=== PATIENT | female | born 1975 | race Caucasian/White ===

== ENCOUNTER 2020-09-26 07:57 | Outpatient (REF) | payer OTHER, SELFPAY ==
--- NOTE | 2020-09-26 08:03 | MM_ITS ---
EXAMINATION: MM SCREENING DIGITAL BREAST TOMOSYNTHESIS, BILATERAL CLINICAL INFORMATION: Screening. Asymptomatic. The lifetime risk of breast cancer based on the Tyrer-Cuzick Model is unable to be determined due to incomplete historical information. COMPARISON: Mammography: 09/21/19, 08/25/18, 06/24/17, 06/07/16, 05/30/15 TECHNIQUE: Digital breast tomosynthesis is performed in both the craniocaudal and mediolateral oblique views along with computer-aided detection (CAD). Synthesized 2D images are generated from the tomosynthesis. FINDINGS: There are scattered areas of fibroglandular density (ACR BI-RADS breast composition Category b). There are heterogeneous islands of fibroglandular tissue in each breast. The distribution is unchanged. No suspicious mass. No new suspicious abnormality. MM/MM tomosynthesis screening BI IMPRESSION: No mammographic evidence of malignancy. ASSESSMENT: BI-RADS 2: Benign RECOMMENDATION: Routine annual mammography screening. This patient's information was entered into a reminder system with a target due date for their next mammogram.
== END 2020-09-26 07:58 | disposition home or self-care (01) ==
LOC: HO.MAMMO 07:57
PROVIDERS: Visit Provider Internal Medicine
DX: Z12.31 Encounter for screening mammogram for malignant neoplasm of breast (principal)
CPT/HCPCS: 77063; 77067

== ENCOUNTER 2021-08-29 10:28 | Outpatient (REF) | payer OTHER, SELFPAY ==
[2021-08-29 12:05] LABS: Alanine Aminotransferase 18 U/L (0-31); Albumin Level 4.3 g/dL (3.5-5.0); Alkaline Phosphatase 97 U/L (39-117); Anion Gap 13 (12-20); Aspartate Amino Transferase 20 U/L (5-31); Bilirubin Total 0.4 mg/dL (0.0-1.0); Blood Urea Nitrogen 11 mg/dL (9-16); Carbon Dioxide 28 mmol/L (22-29); Chloride 104 mmol/L (96-108); Cholesterol 187 mg/dL; Estimated Glomerular Filt Rate > 60; Glucose Fasting 87 mg/dL (60-99); HDL Cholesterol 53 mg/dL; LDL Cholesterol Calculated 108 mg/dl; Potassium 4.5 mmol/L (3.3-5.1); Sodium 140 mmol/L (135-145); Total Protein 7.4 g/dL (6.5-8.0); Triglycerides 133 mg/dL
[2021-08-30 08:22] LABS: LDL Cholesterol Direct 113 mg/dL (<100)
== END 2021-08-29 10:29 | disposition home or self-care (01) ==
LOC: HO.HMGCLDS 10:28
PROVIDERS: PCP Internal Medicine; Visit Provider Internal Medicine
DX: E78.9 Disorder of lipoprotein metabolism, unspecified (principal); R42 Dizziness and giddiness
CPT/HCPCS: 36415; 80048; 80053; 80061; 83721

== ENCOUNTER 2021-11-09 11:57 | Outpatient (REF) | payer OTHER, SELFPAY ==
[2021-11-09 12:18] LABS: Binax Internal Control QC Valid; Binax Now Covid-19 Ag Positive (Negative)
== END 2021-11-09 11:58 | disposition home or self-care (01) ==
LOC: HO.LAB 11:57
PROVIDERS: Visit Provider Internal Medicine
DX: Z20.822 Contact with and (suspected) exposure to COVID-19 (principal)
CPT/HCPCS: C9803

== ENCOUNTER 2022-04-29 10:20 | Outpatient (REF) | payer OTHER, SELFPAY ==
[2022-04-29 15:06] LABS: CT PCR NOT DETECTED (Not Detect.); NG PCR NOT DETECTED (Not Detect.)
[2022-04-30 12:27] LABS: BV Int Neg Control Negative (Negative); BV Int Pos Control Positive (Positive)
[2022-05-02 18:21] LABS: HPV mRNA E6/E7 rflx Not Detected (Not Detected)
== END 2022-04-29 10:21 | disposition home or self-care (01) ==
LOC: HO.LAB 10:20
PROVIDERS: Visit Provider Advanced Practice Midwife
DX: Z12.4 Encounter for screening for malignant neoplasm of cervix (principal); Z11.3 Encounter for screening for infections with a predominantly sexual mode of transmission; Z11.51 Encounter for screening for human papillomavirus (HPV); F79 Unspecified intellectual disabilities; E66.09 Other obesity due to excess calories; E65 Localized adiposity; N92.6 Irregular menstruation, unspecified; Z20.2 Contact with and (suspected) exposure to infections with a predominantly sexual mode of transmission
CPT/HCPCS: 81025; 87480; 87491; 87510; 87591; 87624; 87660; 88142

== ENCOUNTER 2022-06-19 11:09 | Outpatient (REF) | payer OTHER, SELFPAY ==
--- NOTE | ~2022-06-19 | US_ITS ---
EXAMINATION: US PELVIS CLINICAL INFORMATION: Localized adiposity COMPARISON: None TECHNIQUE: Transabdominal pelvic ultrasound performed. Transvaginal imaging was declined. FINDINGS: Uterus: The uterus is anteverted and measures 10.1 x 3.4 x 4.3 cm. The double wall endometrial thickness is 0.4 mm. The uterus is smooth in contour and has normal myometrial echogenicity. No visible fibroid. Adnexa: The ovaries are not visualized. There is no adnexal mass identified. No free fluid. US/US pelvic complete IMPRESSION: Unremarkable appearance of the uterus on this transabdominal imaging. The ovaries are not seen. No adnexal mass.
[2022-06-19 11:23] LABS: MANUAL DIFF FLAG NO
[2022-06-19 11:38] LABS: Basophils Percent Auto 0.5 % (0-2); Eosinophils Absolute Auto 0.2 X10*3/uL (0.0-0.4); Hematocrit 42.8 % (37.0-47.0); Hemoglobin 14.1 g/dl (12.0-16.0); Imm Gran Abs Auto 0.02 X10*3/uL (0.00-0.03); Imm Gran Pct Auto 0.3 % (0.0-0.4); Lymphocytes Percent Auto 26.7 % (20-40); Mean Corpuscular HGB Conc 32.9 g/dl (31.0-35.0); Mean Corpuscular Hemoglobin 30.9 pg (27.0-33.0); Mean Corpuscular Volume 93.9 fL (80.0-98.0); Mean Platelet Volume 10.3 fL (9.4-12.3); Monocytes Absolute Auto 0.5 X10*3/uL (0.1-1.2); Monocytes Percent Auto 6.6 % (2-11); Neutrophils Absolute Auto 4.8 x10*3/uL (2.0-8.3); Neutrophils Percent Auto 63.9 % (45-73); Platelet Count 195 X10*3/uL (160-400); Red Blood Count 4.56 X10*6/uL (4.20-5.50); Red Cell Distribution Width 13.9 % (11.0-16.0); White Blood Count 7.4 X10*3/uL (4.8-10.8)
[2022-06-19 12:27] LABS: Alanine Aminotransferase 16 U/L (0-31); Albumin Level 4.3 g/dL (3.5-5.0); Alkaline Phosphatase 92 U/L (39-117); Anion Gap 16 (12-20); Aspartate Amino Transferase 16 U/L (5-31); Bilirubin Total 0.5 mg/dL (0.0-1.0); Blood Urea Nitrogen 11 mg/dL (9-16); Carbon Dioxide 26 mmol/L (22-29); Chloride 104 mmol/L (96-108); Cholesterol 193 mg/dL; Estimated Glomerular Filt Rate > 60; Glucose Fasting 91 mg/dL (60-99); HDL Cholesterol 56 mg/dL; LDL Cholesterol Calculated 116 mg/dl; Potassium 4.3 mmol/L (3.3-5.1); Sodium 142 mmol/L (135-145); Total Protein 7.4 g/dL (6.5-8.0); Triglycerides 106 mg/dL
[2022-06-19 12:47] LABS: TSH reflex Free T4 1.64 uIU/mL (0.32-4.0)
== END 2022-06-19 11:10 | disposition home or self-care (01) ==
LOC: HO.US 11:09
PROVIDERS: Absent Provider Internal Medicine; PCP Internal Medicine; Visit Provider Advanced Practice Midwife
DX: N92.6 Irregular menstruation, unspecified (principal); E66.09 Other obesity due to excess calories; E78.9 Disorder of lipoprotein metabolism, unspecified; F41.1 Generalized anxiety disorder; G40.909 Epilepsy, unspecified, not intractable, without status epilepticus; E65 Localized adiposity
CPT/HCPCS: 36415; 76856; 80053; 80061; 84443; 85025

== ENCOUNTER 2023-01-29 12:07 | Outpatient (REF) | payer OTHER, SELFPAY ==
[2023-01-29 14:38] LABS: Alanine Aminotransferase 18 U/L (0-31); Albumin Level 4.2 g/dL (3.5-5.0); Alkaline Phosphatase 105 U/L (39-117); Anion Gap 14 (12-20); Aspartate Amino Transferase 17 U/L (5-31); Bilirubin Total 0.7 mg/dL (0.0-1.0); Blood Urea Nitrogen 11 mg/dL (9-16); Carbon Dioxide 27 mmol/L (22-29); Chloride 105 mmol/L (96-108); Estimated Glomerular Filt Rate > 60; Glucose Random 105 mg/dL (60-115); Potassium 3.8 mmol/L (3.3-5.1); Sodium 142 mmol/L (135-145); Total Protein 7.1 g/dL (6.5-8.0)
[2023-01-30 11:28] LABS: LDL Cholesterol Direct 95 mg/dL (<100)
== END 2023-01-29 12:08 | disposition home or self-care (01) ==
LOC: HO.HMGCLDS 12:07
PROVIDERS: PCP Internal Medicine; Visit Provider Internal Medicine
DX: E78.9 Disorder of lipoprotein metabolism, unspecified (principal)
CPT/HCPCS: 36415; 80053; 83721

== ENCOUNTER 2023-03-20 13:36 | Outpatient (REF) | payer OTHER, SELFPAY ==
--- NOTE | ~2023-03-20 | MM_ITS ---
EXAMINATION: MM SCREENING DIGITAL BREAST TOMOSYNTHESIS, BILATERAL CLINICAL INFORMATION: Screening. Asymptomatic. The lifetime risk of breast cancer based on the Tyrer-Cuzick Model is 9%. COMPARISON: Mammography: 09/26/2020, 09/21/2019, 08/25/2018,06/24/2017, 06/07/2016 TECHNIQUE: Digital breast tomosynthesis is performed in both the craniocaudal and mediolateral oblique views along with computer-aided detection (CAD). Synthesized 2D images are generated from the tomosynthesis. FINDINGS: There are scattered areas of fibroglandular density (ACR BI-RADS breast composition Category b). There are no significant masses, abnormal calcifications, or other abnormalities. There are scattered bilateral asymmetries similar to prior studies. No developing density or architectural abnormality. There are scattered benign round coarse calcifications. The axilla and skin contours are unremarkable. MM/MM tomosynthesis screening BI IMPRESSION: No mammographic evidence of malignancy. ASSESSMENT: BI-RADS 2: Benign RECOMMENDATION: Routine annual mammography screening. This patient's information was entered into a reminder system with a target due date for their next mammogram.
== END 2023-03-20 13:37 | disposition home or self-care (01) ==
LOC: HO.MAMMO 13:36
PROVIDERS: PCP Internal Medicine; Visit Provider Internal Medicine
DX: Z12.31 Encounter for screening mammogram for malignant neoplasm of breast (principal)
CPT/HCPCS: 77063; 77067

== ENCOUNTER → 2023-04-30 10:20 | Outpatient (BNVA) | payer OTHER, SELFPAY | PROVIDERS: PCP Internal Medicine; Visit Provider Advanced Practice Midwife ==

== ENCOUNTER 2023-07-30 12:45 | Outpatient (AMB) | payer OTHER, SELFPAY ==
[2023-07-30 12:45] VITALS: BP 94/70; PULSE 72; O2SAT 97; BMI 36.6
--- NOTE | 2023-07-30 12:45 | MHC.PC.OV ---
Vital Signs 07/30/23 12:45 Height 5 ft 4 in Weight 213 lb BMI 36.6 BP 94/70 Blood Pressure Location Lt brachial Position Sitting Pulse 72 Pulse Source Pulse Oximeter Pulse Oximetry (%) 97 Oxygen Delivery Method Room Air Intake Visit Reasons: 6m follow up Intake Note: Pt is here today for 6 months follow up visit. Allergies No Known Allergies [No Known Allergies*] Allergy (Verified 07/30/23 12:45) Medication List - Last Reconciled 07/30/23 by Bria Martinez MD ketoconazole 1% (Nizoral A-D) 1 appl topical 2XW 30 days lamotrigine 100 mg PO BID loratadine (Claritin) 10 mg PO DAILY PRN meclizine 25 mg PO BID PRN 7 days risperidone 2 mg PO DAILY sertraline 50 mg PO DAILY simvastatin 20 mg PO BEDTIME trazodone 50 mg PO DAILY triamcinolone acetonide 0.5% 1 appl topical BID PRN 30 days Tobacco use date assessed: 07/30/23 Dental Screening Dental Screen Date: 07/30/23 Did you have a dental visit in the last 12 months?: Yes Did you have a dental problem in the last 6 months where you did not have access to dental care?: No Was dental information given to patient?: Patient has dentist HPI 6m follow up HPI Details Six-month follow-up appointment patient is 48-year-old female with intellectual disability but able to understand simple directions. Patient is on simvastatin 20 mg for lipid control and is due for labs Patient is also on medication for anxiety sertraline 50 mg and trazodone 50 mg at night along with risperidone 2 mg through Psychiatry Seizure disorder managed by Neurology patient is on lamotrigine 100 mg b.i.d. Patient is due for physical examination appointment we will book that in 6 month BMI is elevated at 36.6, patient need to lose weight but having difficulty losing. [facility] Medical History Anxiety, generalized Seizure disorder Intellectual disability Lipid disorder Surgical History History of tooth extraction History of section Family History Father Seizure Unknown family medical history Mother No problems noted. Sister No problems noted. Daughter No problems noted. Other Mental health disorder Social History Housing: Apartment Patient Tobacco Use Status: Never used Tobacco e-Cigarette/Vaping Use: Never Used Second Hand Smoke Exposure: No Current occupational status: disabled Cognitive needs: No Hearing needs: No Vision needs: Yes Questionnaire PHQ-9 Over the last 2 weeks, how often have you been bothered by any of the following problems? 1. Little interest or pleasure in doing things: not at all 2. Feeling down, depressed, or hopeless: several days 3. Trouble falling or staying asleep, or sleeping too much: not at all 4. Feeling tired or having little energy: several days 5. Poor appetite or overeating: not at all 6. Feeling bad about yourself - or that you are a failure or have let yourself or your family down: not at all 7. Trouble concentrating on things, such as reading the newspaper or watching television: not at all 8. Moving or speaking so slowly that other people could have noticed. Or the opposite - being so fidgety or restless that you have been moving around a lot more than usual: not at all 9. Thoughts that you would be better off or of hurting yourself in some way: not at all Total score: 2 Depression Screening Interpretation: Negative Depression Screening Done: Yes 85515 - PHQ-9 Billing: Yes Source: Developed by Drs. Venancio Wilkes, Babak Garcia and colleagues, with an educational karl from [employer]. Thrive Questionnaire Date Thrive assessed: 06/19/22 AUDIT C Alcohol Use Questionnaire (AUDIT-C) 1. How often do you have a drink containing alcohol?: Never 3. How often do you have six or more drinks on one occasion?: Never Total Score: 0 MATT-7 AMB Questionnaire MATT-7 Date MATT - 7 assessed: 06/19/22 Source: Developed by Drs. Venancio Wilkes, Babak Garcia and colleagues, with an educational karl from [employer]. Review of Systems Const Denies chills and Denies fever(s) ENT Denies epistaxis and Denies nasal discharge Card Denies chest pain Resp Denies chest congestion, Denies cough and Denies hemoptysis GI Denies diarrhea and Denies nausea Skin/Breast Denies rash Neuro Reports no additional complaints Psych Reports no additional complaints Endo Reports no additional complaints Physical exam (Primary Care) Vital Signs: Last Vital Signs Pulse 72 07/30/23 12:45 BP 94/70 07/30/23 12:45 Pulse Ox 97 07/30/23 12:45 Oxygen Delivery Method Room Air 07/30/23 12:45 BMI result Body Mass Index 36.6 Tobacco/Smoking Status: Tobacco use Status Tobacco use date assessed 07/30/23 07/30/23 12:50 Patient Tobacco Use Status Never used Tobacco 07/30/23 12:50 e-Cigarette/Vaping Use Never Used 07/30/23 12:50 Depression Screening Interpretation: Negative Thrive Assessment: Date of Thrive Assessment Date Thrive assessed 06/19/22 07/30/23 12:50 Const General: cooperative, comfortable and no acute distress Orientation/consciousness: patient oriented x3 HENMT Head: Yes normocephalic Eyes General: appearance normal, both eyes and all related structures Neck Neck: Yes supple Resp Effort & Inspection: normal respiratory effort, no cough and no stridor Cardio Rhythm: regular rhythm Heart sounds: S1 normal heart sound present and S2 normal heart sound present Skin General skin exam: turgor normal Neuro General: patient oriented x3, tone normal and moves all extremities Extrem Right lower extremity: no edema Left lower extremity: no edema Assessment and Plan Assessment & Plan (1) Lipid disorder: Code(s): E78.9 - Disorder of lipoprotein metabolism, unspecified (2) Intellectual disability: Code(s): F79 - Unspecified intellectual disabilities (3) Seizure disorder: Code(s): G40.909 - Epilepsy, unspecified, not intractable, without status epilepticus (4) Anxiety, generalized: Code(s): F41.1 - Generalized anxiety disorder (5) Obesity (BMI 35.0-39.9 without comorbidity): Code(s): E66.9 - Obesity, unspecified (6) Obesity due to excess calories: Code(s): E66.09 - Other obesity due to excess calories Qualifiers: Obesity classification: adult class 2 (BMI 35 - 39.9) Serious obesity comorbidity presence: with serious comorbidity Body mass index: BMI 36.0-36.9 Qualified Code(s): E66.01 - Morbid (severe) obesity due to excess calories; Z68.36 - Body mass index [BMI] 36.0-36.9, adult Plan Six-month follow-up appointment patient is 48-year-old female with intellectual disability but able to understand simple directions. Patient is on simvastatin 20 mg for lipid control and is due for labs Patient is also on medication for anxiety sertraline 50 mg and trazodone 50 mg at night along with risperidone 2 mg through Psychiatry Seizure disorder managed by Neurology patient is on lamotrigine 100 mg b.i.d. Patient is due for physical examination appointment we will book that in 6 month BMI is elevated at 36.6, patient need to lose weight but having difficulty losing. Orders: Orders Comprehensive Met. Panel Today E66.9 - Obesity, unspecified, E78.9 - Disorder of lipoprotein metabolism, unspecified, F41.1 - Generalized anxiety disorder, F79 - Unspecified intellectual disabilities, G40.909 - Epilepsy, unspecified, not intractable, without status epilepticus Complete Blood Count Auto Diff Today E66.9 - Obesity, unspecified, E78.9 - Disorder of lipoprotein metabolism, unspecified, F41.1 - Generalized anxiety disorder, F79 - Unspecified intellectual disabilities, G40.909 - Epilepsy, unspecified, not intractable, without status epilepticus Coding Level of Care Code Est Pt Level 4 (15698) Diagnoses Lipid disorder E78.9 Intellectual disability F79 Seizure disorder G40.909 Anxiety, generalized F41.1 Obesity (BMI 35.0-39.9 without comorbidity) E66.9 Class 2 severe obesity due to excess calories with serious comorbidity and body mass index (BMI) of 36.0 to 36.9 in adult E66.01; Z68.36 Obesity classification: adult class 2 (BMI 35 - 39.9) Serious obesity comorbidity presence: with serious comorbidity Body mass index: BMI 36.0-36.9
== END 2023-07-30 13:13 | disposition home or self-care (01) ==
PROVIDERS: Visit Provider Internal Medicine
DX: E78.9 Disorder of lipoprotein metabolism, unspecified (principal); G40.909 Epilepsy, unspecified, not intractable, without status epilepticus; E66.01 Morbid (severe) obesity due to excess calories; Z68.36 Body mass index [BMI] 36.0-36.9, adult; F79 Unspecified intellectual disabilities; F41.1 Generalized anxiety disorder
CPT/HCPCS: 99214

== ENCOUNTER 2023-07-30 13:01 | Outpatient (REF) | payer OTHER, SELFPAY ==
[2023-07-30 17:34] LABS: Alanine Aminotransferase 10 U/L (0-31); Albumin Level 4.3 g/dL (3.5-5.0); Alkaline Phosphatase 80 U/L (39-117); Anion Gap 17 (12-20); Aspartate Amino Transferase 16 U/L (5-31); Bilirubin Total 0.3 mg/dL (0.0-1.0); Blood Urea Nitrogen 11 mg/dL (9-16); Calcium 9.8 mg/dL (8.4-10.2); Carbon Dioxide 26 mmol/L (22-29); Chloride 103 mmol/L (96-108); Estimated Glomerular Filt Rate > 60; Glucose Random 83 mg/dL (60-115); Sodium 142 mmol/L (135-145); Total Protein 7.6 g/dL (6.5-8.0)
== END 2023-07-30 13:02 | disposition home or self-care (01) ==
LOC: HO.HMGCLDS 13:01
PROVIDERS: PCP Internal Medicine; Visit Provider Internal Medicine
DX: E78.9 Disorder of lipoprotein metabolism, unspecified (principal); F79 Unspecified intellectual disabilities; G40.909 Epilepsy, unspecified, not intractable, without status epilepticus; F41.1 Generalized anxiety disorder; E66.9 Obesity, unspecified
CPT/HCPCS: 36415; 80053; 85025

== ENCOUNTER 2024-02-04 10:19 | Outpatient (AMB) | payer OTHER, SELFPAY ==
[2024-02-04 10:21] VITALS: BP 100/70; PULSE 85; O2SAT 96; BMI 36.4
--- NOTE | 2024-02-04 10:21 | A.OFFPC_ITS ---
Vital Signs 02/04/24 10:21 Height 5 ft 4 in Weight 212 lb BMI 36.4 BP 100/70 Blood Pressure Location Lt brachial Position Sitting Pulse 85 Pulse Source Pulse Oximeter Pulse Oximetry (%) 96 Oxygen Delivery Method Room Air Intake Visit Reasons: Annual PE [employer] Required: No Accompanied by: Self / Same As Patient Allergies No Known Allergies [No Known Allergies*] Allergy (Verified 02/04/24 10:21) Medication List - Last Reconciled 02/04/24 by Bria Martinez MD calcipotriene 0.005% topical ketoconazole 2% topical lamotrigine 100 mg PO BID loratadine (Claritin) 10 mg PO DAILY PRN risperidone 2 mg PO DAILY sertraline 50 mg PO DAILY simvastatin 20 mg PO BEDTIME trazodone 50 mg PO DAILY triamcinolone acetonide 0.5% 1 appl topical BID PRN 30 days Tobacco use date assessed: 02/04/24 Dental Screening Dental Screen Date: 02/04/24 Did you have a dental visit in the last 12 months?: Yes Did you have a dental problem in the last 6 months where you did not have access to dental care?: No Was dental information given to patient?: Patient has dentist HPI Annual PE HPI Details Patient is a 49-year-old with intellectual disability who lives in a foster care came in today for physical examination She is here with a social media specialist Only medication from this office is simvastatin for lipid control For that patient comes in every 6 months for follow-up, she is due for labs Mammogram will be due in March of this year Gynecology visit was April of last year Patient refused colonoscopy today after I explained the procedure. BMI is elevated patient have difficulty losing weight Psychiatric care through Psychiatry Follow-up 6 months physical exam 1 year [facility] Medical History Anxiety, generalized Seizure disorder Intellectual disability Lipid disorder Surgical History History of tooth extraction History of section Family History Father Seizure Unknown family medical history Mother No problems noted. Sister No problems noted. Daughter No problems noted. Other Mental health disorder Social History Housing: Apartment Patient Tobacco Use Status: Never used Tobacco e-Cigarette/Vaping Use: Never Used Second Hand Smoke Exposure: No Current occupational status: disabled Cognitive needs: No Hearing needs: No Vision needs: Yes Questionnaire PHQ-9 Over the last 2 weeks, how often have you been bothered by any of the following problems? 1. Little interest or pleasure in doing things: not at all 2. Feeling down, depressed, or hopeless: not at all 3. Trouble falling or staying asleep, or sleeping too much: not at all 4. Feeling tired or having little energy: not at all 5. Poor appetite or overeating: not at all 6. Feeling bad about yourself - or that you are a failure or have let yourself or your family down: not at all 7. Trouble concentrating on things, such as reading the newspaper or watching television: not at all 8. Moving or speaking so slowly that other people could have noticed. Or the opposite - being so fidgety or restless that you have been moving around a lot more than usual: not at all 9. Thoughts that you would be better off or of hurting yourself in some way: not at all Total score: 0 Depression Screening Interpretation: Negative Depression Screening Done: Yes 63782 - PHQ-9 Billing: Yes Source: Developed by Drs. Venancio Wilkes, Jeannette Braga, Babak Shafer and colleagues, with an educational karl from [employer]. Thrive Questionnaire Date Thrive assessed: 02/04/24 I am a: Patient What is your living situation today?: I have a steady place to live Within the past 12 months, did the food you bought not last and you didn't have the money to get more?: Never true Within the past 12 months, did you worry whether your food would run out before you got money to buy more?: Never true Do you have trouble paying for medicines?: No Do you have trouble getting transportation to medical appointments?: No Do you have trouble paying your heating and electricity bill?: No Do you have trouble taking care of your child, family member or friend?: No Do you have trouble with day-to-day activities such as bathing, preparing meals, shopping, managing finances, etc.?: No Are you currently unemployed and looking for a job?: No Are you interested in more education?: No Please select the resources that you would like help with: None Currently or been in a relationship where the following occur: no concerns reported THRIVE Score: 0 AUDIT C Alcohol Use Questionnaire (AUDIT-C) 1. How often do you have a drink containing alcohol?: Never 3. How often do you have six or more drinks on one occasion?: Never Total Score: 0 Score Reviewed/Action Taken: Yes MATT-7 AMB Questionnaire MATT-7 Date MATT - 7 assessed: 02/04/24 Feeling nervous, anxious, or on edge: 0 = Not at all Not being able to stop or control worryin = Not at all Worrying too much about different things: 0 = Not at all Trouble relaxin = Not at all Being so restless that it is hard to sit still: 0 = Not at all Becoming easily annoyed or irritable: 0 = Not at all Feeling afraid as if something awful might happen: 0 = Not at all Total MATT-7 score (0-4 normal; 5-9 mild; 10-14 moderate; 15-21 severe): 0 Source: Developed by Drs. Venancio Wilkes, Jeannette Brgaa, Babak Shafer and colleagues, with an educational karl from [employer]. MATT-7 Assessment Billing MATT-7 Assessment Tool: MATT-7 Assessment 42373 Review of Systems Const Denies chills, Denies fever(s) and Denies headache(s) Eyes Denies blurry vision ENT Denies headache(s), Denies nasal discharge, Denies nasal obstruction, Denies odynophagia and Denies sinus pain Card Denies chest pain at rest and Denies chest pain with activity Resp Denies cough and Denies hemoptysis GI Denies diarrhea, Denies odynophagia, Denies vomiting and Denies hematemesis Reports as per HPI Musc Denies abnormal gait Skin/Breast Reports as per HPI Neuro Denies Neuro-related abnormal movements, Denies Abnormal speech present, Denies abnormal gait, Denies headache(s) and Denies Sensory deficit (Neuro) Endo Reports as per HPI Nguyễn/Lymph Reports as per HPI Aller/Immun Reports as per HPI Physical exam (Primary Care) Vital Signs: Last Vital Signs Pulse 85 04/17/24 10:21 BP 100/70 02/04/24 10:21 Pulse Ox 96 02/04/24 10:21 Oxygen Delivery Method Room Air 02/04/24 10:21 BMI result Body Mass Index 36.4 Tobacco/Smoking Status: Tobacco use Status Tobacco use date assessed 02/04/24 02/04/24 10:27 Patient Tobacco Use Status Never used Tobacco 02/04/24 10:27 e-Cigarette/Vaping Use Never Used 02/04/24 10:27 PHQ-9: PHQ-9 Score PHQ-9: Total score 0 02/04/24 10:42 Depression Screening Interpretation: Negative Thrive Assessment: Date of Thrive Assessment Date Thrive assessed 02/04/24 02/04/24 10:27 Currently or been in a relationship where the following occur: no concerns reported Const General: cooperative, comfortable and no acute distress HENMT Head: Yes normocephalic and Yes atraumatic Eyes General: appearance normal, both eyes and all related structures Pupils: Equal, round and reactive pupils present EOM: EOMs intact bilaterally Neck Neck: Yes supple and No lymphadenopathy Thyroid: Thyroid normal Lymphatic: no lymphadenopathy noted Chest Breast/axilla palpation: normal palpation of the breasts Resp Effort & Inspection: normal respiratory effort and able to speak in complete sentences Auscultation: clear to auscultation bilaterally Cardio Heart sounds: S1 normal heart sound present and S2 normal heart sound present GI Palpation (GI): Soft to palpation and nontender Auscultation: normal bowel sounds General: Yes no CVA tenderness Back/Spine/Pelvis Back: no CVA tenderness Skin General skin exam: elasticity normal and turgor normal Neuro General: gait normal Cranial nerves: Yes Equal, round and reactive pupils present Speech: No Abnormal speech present Sensory Exam: No Sensory deficit (Neuro) Extrem General: Yes normal exam except as noted and No edema Assessment and Plan Assessment & Plan (1) Encounter for general adult medical examination with abnormal findings: Code(s): Z00.01 - Encounter for general adult medical examination with abnormal findings (2) Obesity (BMI 35.0-39.9 without comorbidity): Code(s): E66.9 - Obesity, unspecified (3) Seborrheic dermatitis: Code(s): L21.9 - Seborrheic dermatitis, unspecified (4) Intellectual disability: Code(s): F79 - Unspecified intellectual disabilities (5) Lipid disorder: Code(s): E78.9 - Disorder of lipoprotein metabolism, unspecified (6) Seizure disorder: Code(s): G40.909 - Epilepsy, unspecified, not intractable, without status epilepticus (7) Anxiety, generalized: Code(s): F41.1 - Generalized anxiety disorder Plan Patient is a 49-year-old with intellectual disability who lives in a foster care came in today for physical examination She is here with a social media specialist Only medication from this office is simvastatin for lipid control For that patient comes in every 6 months for follow-up, she is due for labs Mammogram will be due in March of this year Gynecology visit was April of last year Patient refused colonoscopy today after I explained the procedure. BMI is elevated patient have difficulty losing weight Psychiatric care through Psychiatry Patient does have a diagnosis of seizure disorder managed by Neurology Follow-up 6 months physical exam 1 year Orders: Orders Complete Blood Count Auto Diff Today E66.9 - Obesity, unspecified, E78.9 - Disorder of lipoprotein metabolism, unspecified, F41.1 - Generalized anxiety disorder, F79 - Unspecified intellectual disabilities, G40.909 - Epilepsy, unspecified, not intractable, without status epilepticus, L21.9 - Seborrheic dermatitis, unspecified, Z00.01 - Encounter for general adult medical examination with abnormal findings Comprehensive Met. Panel Today E66.9 - Obesity, unspecified, E78.9 - Disorder of lipoprotein metabolism, unspecified, F41.1 - Generalized anxiety disorder, F79 - Unspecified intellectual disabilities, G40.909 - Epilepsy, unspecified, not intractable, without status epilepticus, L21.9 - Seborrheic dermatitis, unspecified, Z00.01 - Encounter for general adult medical examination with abnormal findings LDL Cholesterol Direct Today E66.9 - Obesity, unspecified, E78.9 - Disorder of lipoprotein metabolism, unspecified, F41.1 - Generalized anxiety disorder, F79 - Unspecified intellectual disabilities, G40.909 - Epilepsy, unspecified, not intractable, without status epilepticus, L21.9 - Seborrheic dermatitis, unspecified, Z00.01 - Encounter for general adult medical examination with abnormal findings Coding Level of Care Code Est Pt Prev Care 40-64y(71906) Diagnoses Encounter for general adult medical examination with abnormal findings Z00.01 Obesity (BMI 35.0-39.9 without comorbidity) E66.9 Seborrheic dermatitis L21.9 Intellectual disability F79 Lipid disorder E78.9 Seizure disorder G40.909 Anxiety, generalized F41.1 Additional Codes MATT-7 Assessment Billing - MATT-7 Assessment Tool: MATT-7 Assessment [id number] ([id number])
== END 2024-02-04 10:40 | disposition home or self-care (01) ==
PROVIDERS: PCP Internal Medicine; Visit Provider Internal Medicine
DX: Z00.00 Encounter for general adult medical examination without abnormal findings (principal); G40.909 Epilepsy, unspecified, not intractable, without status epilepticus; E66.9 Obesity, unspecified; Z68.36 Body mass index [BMI] 36.0-36.9, adult; L21.9 Seborrheic dermatitis, unspecified; F79 Unspecified intellectual disabilities; E78.9 Disorder of lipoprotein metabolism, unspecified; F41.1 Generalized anxiety disorder
CPT/HCPCS: 99396

== ENCOUNTER 2024-02-04 10:42 | Outpatient (REF) | payer OTHER, SELFPAY ==
[2024-02-04 13:12] LABS: MANUAL DIFF FLAG NO
[2024-02-04 13:34] LABS: Basophils Percent Auto 0.6 % (0-2); Eosinophils Absolute Auto 0.1 X10*3/uL (0.0-0.4); Eosinophils Percent Auto 1.3 % (0-4); Hematocrit 45.8 % (37.0-47.0); Hemoglobin 15.1 g/dl (12.0-16.0); Imm Gran Abs Auto 0.01 X10*3/uL (0.00-0.03); Imm Gran Pct Auto 0.1 % (0.0-0.4); Lymphocytes Absolute Auto 1.8 X10*3/uL (1.2-4.9); Lymphocytes Percent Auto 25.6 % (20-40); Mean Corpuscular Hemoglobin 31.7 pg (27.0-33.0); Mean Corpuscular Volume 96.2 fL (80.0-98.0); Mean Platelet Volume 10.7 fL (9.4-12.3); Monocytes Absolute Auto 0.3 X10*3/uL (0.1-1.2); Monocytes Percent Auto 4.6 % (2-11); Neutrophils Absolute Auto 4.7 x10*3/uL (2.0-8.3); Neutrophils Percent Auto 67.8 % (45-73); Platelet Count 198 X10*3/uL (160-400); Red Blood Count 4.76 X10*6/uL (4.20-5.50); Red Cell Distribution Width 13.3 % (11.0-16.0); White Blood Count 6.9 X10*3/uL (4.8-10.8)
[2024-02-04 14:32] LABS: Alanine Aminotransferase 11 U/L (0-31); Albumin Level 4.2 g/dL (3.5-5.0); Anion Gap 12 (12-20); Aspartate Amino Transferase 16 U/L (5-31); Bilirubin Total 0.6 mg/dL (0.0-1.0); Blood Urea Nitrogen 8 mg/dL (9-16); Calcium 9.4 mg/dL (8.4-10.2); Carbon Dioxide 27 mmol/L (22-29); Chloride 104 mmol/L (96-108); Estimated Glomerular Filt Rate > 60; Glucose Random 93 mg/dL (60-115); Sodium 139 mmol/L (135-145); Total Protein 7.8 g/dL (6.5-8.0)
[2024-02-04 15:02] LABS: Alkaline Phosphatase 84 U/L (39-117)
[2024-02-05 11:23] LABS: LDL Cholesterol Direct 100 mg/dL (<100)
== END 2024-02-04 10:43 | disposition home or self-care (01) ==
LOC: HO.HMGCLDS 10:42
PROVIDERS: PCP Internal Medicine; Visit Provider Internal Medicine
DX: Z00.01 Encounter for general adult medical examination with abnormal findings (principal); E66.9 Obesity, unspecified; L21.9 Seborrheic dermatitis, unspecified; F79 Unspecified intellectual disabilities; E78.9 Disorder of lipoprotein metabolism, unspecified; G40.909 Epilepsy, unspecified, not intractable, without status epilepticus; F41.1 Generalized anxiety disorder
CPT/HCPCS: 36415; 80053; 83721; 85025

== ENCOUNTER 2024-03-25 13:58 | Outpatient (REF) | payer OTHER, SELFPAY | END 2024-03-25 13:59 | disposition home or self-care (01) | LOC: HO.MAMMO 13:58 | PROVIDERS: PCP Internal Medicine; Visit Provider Internal Medicine | DX: Z12.31 Encounter for screening mammogram for malignant neoplasm of breast (principal) | CPT/HCPCS: 77063; 77067 ==

== ENCOUNTER → 2024-03-25 14:00 | Outpatient (BNV) | payer OTHER, SELFPAY | PROVIDERS: PCP Internal Medicine; Visit Provider Radiology Diagnostic Radiology | DX: Z12.31 Encounter for screening mammogram for malignant neoplasm of breast (principal) | CPT/HCPCS: 77063; 77067 ==

== ENCOUNTER 2024-07-20 10:27 | Outpatient (AMB) | payer OTHER, SELFPAY ==
[2024-07-20 10:30] VITALS: BP 102/68; PULSE 72; O2SAT 97; BMI 35.1
--- NOTE | 2024-07-20 10:30 | MHC.PC.OV ---
Vital Signs 07/20/24 10:30 Height 5 ft 4 in Weight 204 lb 8 oz BMI 35.1 BP 102/68 Blood Pressure Location Rt brachial Position Sitting Pulse 72 Pulse Source Pulse Oximeter Pulse Oximetry (%) 97 Oxygen Delivery Method Room Air Intake Visit Reasons: 6M F/U Allergies No Known Allergies [No Known Allergies*] Allergy (Verified 02/04/24 10:21) Medication List - Last Reconciled 07/20/24 by Bria Martinez MD calcipotriene 0.005% topical ketoconazole 2% topical lamotrigine 100 mg PO BID loratadine (Claritin) 10 mg PO DAILY PRN risperidone 2 mg PO DAILY sertraline 50 mg PO DAILY simvastatin 20 mg PO BEDTIME trazodone 50 mg PO DAILY triamcinolone acetonide 0.5% 1 appl topical BID PRN 30 days Tobacco use date assessed: 02/04/24 Dental Screening Dental Screen Date: 02/04/24 HPI 6M F/U HPI Details Patient is a 49-year-old female with intellectual disability Came in for her six-month follow-up appointment Lipid disorder: Patient is taking simvastatin 20 mg She offer no complaints today She is also seeing psychiatrist for her psychiatric needs. Last set of lab was January of this year New set of lab order placed to be done today Patient will return in 6 months for physical exam. [facility] Medical History Anxiety, generalized Seizure disorder Intellectual disability Lipid disorder Surgical History History of tooth extraction History of section Family History Father Seizure Unknown family medical history Mother No problems noted. Sister No problems noted. Daughter No problems noted. Other Mental health disorder Social History Housing: Apartment Patient Tobacco Use Status: Never used Tobacco e-Cigarette/Vaping Use: Never Used Second Hand Smoke Exposure: No Current occupational status: disabled Cognitive needs: No Hearing needs: No Vision needs: Yes Questionnaire Thrive Questionnaire Date Thrive assessed: 02/04/24 MATT-7 AMB Questionnaire MATT-7 Date MATT - 7 assessed: 02/04/24 Source: Developed by Drs. Venancio Wilkes, Jeannette Braga, Babak Shafer and colleagues, with an educational karl from [employer]. Review of Systems Const Denies chills and Denies fever(s) ENT Denies epistaxis and Denies nasal discharge Card Denies chest pain Resp Denies chest congestion, Denies cough and Denies hemoptysis GI Denies diarrhea and Denies nausea Skin/Breast Denies rash Neuro Reports no additional complaints Psych Reports no additional complaints Endo Reports no additional complaints Physical exam (Primary Care) Vital Signs: Last Vital Signs Pulse 72 07/20/24 10:30 BP 102/68 07/20/24 10:30 Pulse Ox 97 07/20/24 10:30 Oxygen Delivery Method Room Air 07/20/24 10:30 BMI result Body Mass Index 35.1 Tobacco/Smoking Status: Tobacco use Status Tobacco use date assessed 02/04/24 07/20/24 10:32 Patient Tobacco Use Status Never used Tobacco 07/20/24 10:32 e-Cigarette/Vaping Use Never Used 07/20/24 10:32 Thrive Assessment: Date of Thrive Assessment Date Thrive assessed 02/04/24 07/20/24 10:32 Const General: cooperative, comfortable and no acute distress Orientation/consciousness: patient oriented x3 HENMT Head: Yes normocephalic Eyes General: appearance normal, both eyes and all related structures Neck Neck: Yes supple Resp Effort & Inspection: normal respiratory effort, no cough and no stridor Cardio Rhythm: regular rhythm Heart sounds: S1 normal heart sound present and S2 normal heart sound present Skin General skin exam: turgor normal Neuro General: patient oriented x3, tone normal and moves all extremities Extrem Right lower extremity: no edema Left lower extremity: no edema Coding Level of Care Code Est Pt Level 3 (16119) Diagnoses Lipid disorder E78.9 Intellectual disability F79 Anxiety, generalized F41.1 Class 2 severe obesity due to excess calories with serious comorbidity and body mass index (BMI) of 36.0 to 36.9 in adult E66.01; Z68.36 Body mass index: BMI 36.0-36.9 Obesity classification: adult class 2 (BMI 35 - 39.9) Serious obesity comorbidity presence: with serious comorbidity Assessment & Plan Assessment & Plan (1) Lipid disorder: Code(s): E78.9 - Disorder of lipoprotein metabolism, unspecified Category: Medical (2) Intellectual disability: Code(s): F79 - Unspecified intellectual disabilities Category: Medical (3) Anxiety, generalized: Code(s): F41.1 - Generalized anxiety disorder Category: Medical (4) Obesity due to excess calories: Code(s): E66.09 - Other obesity due to excess calories Category: Medical Qualifiers: Body mass index: BMI 36.0-36.9 Obesity classification: adult class 2 (BMI 35 - 39.9) Serious obesity comorbidity presence: with serious comorbidity Qualified Code(s): E66.01 - Morbid (severe) obesity due to excess calories; Z68.36 - Body mass index [BMI] 36.0-36.9, adult Plan Patient is a 49-year-old female with intellectual disability Came in for her six-month follow-up appointment Lipid disorder: Patient is taking simvastatin 20 mg She offer no complaints today She is also seeing psychiatrist for her psychiatric needs. Last set of lab was January of this year New set of lab order placed to be done today BMI is elevated, patient is having difficulty losing weight Patient will return in 6 months for physical exam. Orders: Orders Complete Blood Count Auto Diff Today E66.01 - Morbid (severe) obesity due to excess calories, E78.9 - Disorder of lipoprotein metabolism, unspecified, F41.1 - Generalized anxiety disorder, F79 - Unspecified intellectual disabilities, Z68.36 - Body mass index [BMI] 36.0-36.9, adult Comprehensive Met. Panel Today E66.01 - Morbid (severe) obesity due to excess calories, E78.9 - Disorder of lipoprotein metabolism, unspecified, F41.1 - Generalized anxiety disorder, F79 - Unspecified intellectual disabilities, Z68.36 - Body mass index [BMI] 36.0-36.9, adult LDL Cholesterol Direct Today E66.01 - Morbid (severe) obesity due to excess calories, E78.9 - Disorder of lipoprotein metabolism, unspecified, F41.1 - Generalized anxiety disorder, F79 - Unspecified intellectual disabilities, Z68.36 - Body mass index [BMI] 36.0-36.9, adult
== END 2024-07-20 10:41 | disposition home or self-care (01) ==
LOC: HO.HMCC 10:27
PROVIDERS: PCP Internal Medicine; Visit Provider Internal Medicine
DX: E78.9 Disorder of lipoprotein metabolism, unspecified (principal); F79 Unspecified intellectual disabilities; F41.1 Generalized anxiety disorder; E66.01 Morbid (severe) obesity due to excess calories; Z68.36 Body mass index [BMI] 36.0-36.9, adult

== ENCOUNTER → 2024-07-20 10:27 | Outpatient (BNVA) | payer OTHER, SELFPAY | PROVIDERS: PCP Internal Medicine; Visit Provider Internal Medicine | DX: E78.9 Disorder of lipoprotein metabolism, unspecified (principal); F79 Unspecified intellectual disabilities; F41.1 Generalized anxiety disorder; E66.01 Morbid (severe) obesity due to excess calories; Z68.36 Body mass index [BMI] 36.0-36.9, adult; Z71.3 Dietary counseling and surveillance | CPT/HCPCS: 99212 ==

== ENCOUNTER 2024-07-20 10:42 | Outpatient (REF) | payer OTHER, SELFPAY ==
[2024-07-20 12:57] LABS: MANUAL DIFF FLAG NO
[2024-07-20 13:11] LABS: Basophils Percent Auto 0.6 % (0-2); Eosinophils Absolute Auto 0.1 X10*3/uL (0.0-0.4); Eosinophils Percent Auto 1.2 % (0-4); Hematocrit 44.3 % (37.0-47.0); Hemoglobin 14.6 g/dl (12.0-16.0); Imm Gran Abs Auto 0.01 X10*3/uL (0.00-0.03); Imm Gran Pct Auto 0.1 % (0.0-0.4); Lymphocytes Absolute Auto 1.9 X10*3/uL (1.2-4.9); Mean Corpuscular Hemoglobin 32.1 pg (27.0-33.0); Mean Corpuscular Volume 97.4 fL (80.0-98.0); Mean Platelet Volume 10.8 fL (9.4-12.3); Monocytes Absolute Auto 0.3 X10*3/uL (0.1-1.2); Monocytes Percent Auto 4.3 % (2-11); Neutrophils Absolute Auto 4.5 x10*3/uL (2.0-8.3); Neutrophils Percent Auto 65.8 % (45-73); Platelet Count 170 X10*3/uL (160-400); Red Blood Count 4.55 X10*6/uL (4.20-5.50); Red Cell Distribution Width 13.3 % (11.0-16.0); White Blood Count 6.8 X10*3/uL (4.8-10.8)
[2024-07-20 13:48] LABS: Alanine Aminotransferase 10 U/L (0-31); Albumin Level 4.3 g/dL (3.5-5.0); Alkaline Phosphatase 77 U/L (39-117); Anion Gap 13 (12-20); Aspartate Amino Transferase 16 U/L (5-31); Blood Urea Nitrogen 9 mg/dL (9-16); Calcium 9.3 mg/dL (8.4-10.2); Carbon Dioxide 28 mmol/L (22-29); Chloride 106 mmol/L (96-108); Estimated Glomerular Filt Rate > 60; Glucose Random 98 mg/dL (60-115); Potassium 3.7 mmol/L (3.3-5.1); Sodium 143 mmol/L (135-145); Total Protein 7.6 g/dL (6.5-8.0)
[2024-07-20 14:07] LABS: Bilirubin Total 0.6 mg/dL (0.0-1.0)
[2024-07-22 00:33] LABS: LDL Cholesterol Direct 91 mg/dL (<100)
== END 2024-07-20 10:43 | disposition home or self-care (01) ==
LOC: HO.HMGCLDS 10:42
PROVIDERS: PCP Internal Medicine; Visit Provider Internal Medicine
DX: E78.9 Disorder of lipoprotein metabolism, unspecified (principal); F79 Unspecified intellectual disabilities; F41.1 Generalized anxiety disorder; E66.01 Morbid (severe) obesity due to excess calories; Z68.36 Body mass index [BMI] 36.0-36.9, adult
CPT/HCPCS: 36415; 80053; 83721; 85025

== ENCOUNTER 2024-11-03 13:13 | Outpatient (REF) | payer OTHER, SELFPAY ==
[2024-11-03 21:32] LABS: Bacterial Vaginosis PCR NEGATIVE (Negative); Candida Group PCR NOT DETECTED (Not Detect); Candida glab krusei PCR DETECTED (Not Detect); Trichomonas vaginalis PCR NOT DETECTED (Not Detect)
[2024-11-03 21:53] LABS: CT PCR NOT DETECTED (Not Detect.); NG PCR NOT DETECTED (Not Detect.)
== END 2024-11-03 13:14 | disposition home or self-care (01) ==
LOC: HO.LNP 13:13
PROVIDERS: PCP Internal Medicine; Visit Provider Advanced Practice Midwife
DX: Z01.419 Encounter for gynecological examination (general) (routine) without abnormal findings (principal); Z32.02 Encounter for pregnancy test, result negative; Z20.2 Contact with and (suspected) exposure to infections with a predominantly sexual mode of transmission; N92.6 Irregular menstruation, unspecified; F79 Unspecified intellectual disabilities; L21.9 Seborrheic dermatitis, unspecified; L30.4 Erythema intertrigo
CPT/HCPCS: 81025; 81515; 87491; 87591; 99396; 99459

== ENCOUNTER 2024-11-03 13:13 | Outpatient (AMB) | payer OTHER, SELFPAY ==
--- NOTE | 2024-11-03 13:14 | A.OFFVIS_ITS ---
Vital Signs 11/03/24 13:15 Height 5 ft 4 in Weight 206 lb BMI 35.4 BP 110/70 Intake Visit Reasons: NETWORK MGR annual exam Intake Note: no concerns Seed Laboratory Technician Required: No Information Interpreted: non-clinical & clinical Information Technology Architect: Information Technology Architect Present (Marely HARGROVE) Accompanied by: Self / Same As Patient Allergies No Known Allergies [No Known Allergies*] Allergy (Verified 11/03/24 13:23) Medication List - Last Reconciled 11/03/24 by Roya Kaiser CNM calcipotriene 0.005% topical ketoconazole 2% topical lamotrigine 100 mg PO BID loratadine (Claritin) 10 mg PO DAILY PRN miconazole nitrate 2% 1 appl topical BID risperidone 2 mg PO DAILY sertraline 50 mg PO DAILY simvastatin 20 mg PO BEDTIME trazodone 50 mg PO DAILY triamcinolone acetonide 0.5% 1 appl topical BID PRN 30 days Is last menstrual period known: No HPI HPI NETWORK MGR annual exam: Details: Patient is here for an annual exam visit she was brought here by somebody who is waiting in the waiting room. She says she lives with Roya #1. And Roya #2. gave her a ride. She says the women who she lives with gives her her medication she says she is sexually active with her and that he wears condoms but also she says that he had his tubes tied 2 weeks ago. She showers in the evenings and she is not sure if she uses a medication on her tummy or not. She has no idea when her last period was she has no gynecological complaints that she knows of. She did not remember the name of her doctor in she did not know when she had a mammogram records indicate that she has seen her primary care in the fall and she had her mammogram in the summer.. Her last visit with this provider was in 2022 and teaching was done at that time about keeping her area of skin underneath her pannus dry after showering cleaning it well and we will address that issue again today,. [facility] Medical History Anxiety, generalized Seizure disorder Intellectual disability Lipid disorder Surgical History History of tooth extraction History of section Family History Father Seizure Unknown family medical history Mother No problems noted. Sister No problems noted. Daughter No problems noted. Other Mental health disorder Social History Housing: Apartment Patient Tobacco Use Status: Never used Tobacco e-Cigarette/Vaping Use: Never Used Second Hand Smoke Exposure: No Current occupational status: disabled Cognitive needs: No Hearing needs: No Vision needs: Yes Female Reproductive History Menstrual control method: condoms Total pregnancies: 1 Full term: 1 Number of Living Children: 1 Date of last pap smear: 04/30/22 Date of Mammogram: 03/25/24 Physical Exam Vital Signs: Last Vital Signs BP 110/70 11/03/24 13:15 BMI result Body Mass Index 35.4 Const General: comfortable, no acute distress, well developed and poor hygiene Nutritional Appearance: average body habitus Limitations: other limitations (Intellectual) HEENT Head: Yes normocephalic Neck Neck: Yes normal visual inspection Thyroid: Thyroid normal Chest Chest palpation & inspection: normal inspection of the chest Breast/axilla inspection: normal inspection of the breasts and normal inspection of the axillae Breast/axilla palpation: normal palpation of the breasts and normal palpation of the axillae Resp Effort & Inspection: normal respiratory effort GI Inspection: Yes normal to inspection Palpation (GI): Soft to palpation and nontender Other: There is a darkened area under her pannus that is crusted possibly from cream or powder that need some hygienic attention. Vagina is slightly reddened discharge is consistent with possible mild yeast white when he patient does not complain of any discomfort at all Difficult to visualize cervix unable to patient tense with exam cervix very very deep in pelvis small posterior consistent with samuel menopausal changes Unable To palpate uterus . Abdomen is somewhat distended. We will obtain a test before patient leaves. General: Yes bladder normal to palpation External Female Exam: normal external appearance and normal appearance of the urethra Speculum Exam - Vagina: normal appearance of the vagina, normal palpation and normal vaginal discharge Speculum Exam - Cervix: normal palpation and nontender Bimanual exam- vagina & uterus: normal bimanual exam, normal palpation, uterine size normal, bladder normal to palpation, consistency normal, normal palpation, uterine mobility normal, uterine shape normal, No Cervical tenderness present, non-tender and no cervical motion tenderness Bimanual Exam- Adnexa, other: normal adnexae, no masses, normal and No adnexal tenderness Results AMB Test Urine AMB Test Urine Negative Last Edit by Marely Mata CMA on 14:02 Results Reviewed Results Reviewed: Name: Kristin Mcclure Age/Sex: 47/F Attending: Roya Kaiser CNM : 1975 Submitted by: Roya Kaiser CNM Copies to: MR #: [id number] Status: DEP REF Collected: 04/29/22 Location: .LAB Received: 04/30/22 Interpretation Satisfactory for evaluation. Negative for intraepithelial lesion or malignancy. HPV mRNA E6/E7: NOT DETECTED This assay detects E6/E7 viral messenger RNA (mRNA) from 14 high-risk HPV types (16, 18, 31, 33, 35, 39, 45, 51, 52, 56, 58, 59, 66, 68) HPV testing performed by [facility], [place], [place]. See reference laboratory pion of the EMR for entire report. Clinical Information LMP: Unknown date Previous PAP test: 02/28/16, WNL Material Received ThinPrep-Cervical Electronically Signed By: RICK Larry (ASCP) 05/07/22 0907 The Pap Test is a screening procedure with the inherent possibility of both false negative and false positive results. Results should be interpreted in the context of historic and current clinical findings. Reliability of the Pap Test is enhanced by performing the test on a regular repetitive basis. Patient: Kristin Mcclure Age/Sex: 47/F MR#: [id number] Page 1 of 1 Patient: Kristin Mcclure MR#: [id number] : 1975 Acct:[id number] Age/Sex: 49 / F ADM Date: 03/25/24 Loc: HO.MAMMO Attending Dr: Bria Martinez MD Ordering Physician: Bria Martinez MD Results: 1Negative Date of Service: 03/25/24 Follow Up: 1 Year From Original Mammogram Procedure(s): MM tomosynthesis screening BI Accession Number(s): [id number] cc: Bria Martinez MD~ EXAMINATION: MM SCREENING DIGITAL BREAST TOMOSYNTHESIS, BILATERAL CLINICAL INFORMATION: Screening. Asymptomatic. COMPARISON: Mammography: This study is compared with prior exams dating back to 2017. TECHNIQUE: Digital breast tomosynthesis is performed in both the craniocaudal and mediolateral oblique views along with computer-aided detection (CAD). Synthesized 2D images are generated from the tomosynthesis. FINDINGS: There are scattered areas of fibroglandular density (ACR BI-RADS breast composition Category b). There are no significant masses, abnormal calcifications, or other abnormalities. MM/MM tomosynthesis screening BI IMPRESSION: No mammographic evidence of malignancy. ASSESSMENT: BI-RADS BI-RADS 1 - Negative RECOMMENDATION: Routine annual mammography screening. Assessment & Plan Assessment & Plan (1) Cervical cancer screening: Comment: 04/29/2022 Pap is negative with negative HPV. Code(s): Z12.4 - Encounter for screening for malignant neoplasm of cervix Category: Medical (2) Encounter for screening mammogram for malignant neoplasm of breast: Code(s): Z12.31 - Encounter for screening mammogram for malignant neoplasm of breast Category: Medical (3) Menstrual changes: Comment: Patient does not remember any details at all about her periods Code(s): N92.6 - Irregular menstruation, unspecified Category: Medical (4) Women's annual routine gynecological examination: Code(s): Z01.419 - Encounter for gynecological examination (general) (routine) without abnormal findings Category: Medical (5) Breast cancer screening: Code(s): Z12.39 - Encounter for other screening for malignant neoplasm of breast Category: Medical (6) Potential exposure to STD: Code(s): Z20.2 - Contact with and (suspected) exposure to infections with a predominantly sexual mode of transmission Category: Medical (7) Intellectual disability: Code(s): F79 - Unspecified intellectual disabilities Category: Medical (8) Seborrheic dermatitis: Code(s): L21.9 - Seborrheic dermatitis, unspecified Category: Medical (9) Intertriginous dermatitis associated with moisture: Comment: Teaching done about carefully towel drying in groin and under pannus after nightly shower. Code(s): L30.4 - Erythema intertrigo Category: Medical Plan Teaching done as best I could about tightening pelvic muscles/Kegel's., teaching also done about trying to shower with her body wash daily rinse off with water especially the area under her pannus and pat dry with a towel to keep the area clean.. I am prescribing miconazole powder that she may use as needed it appears that other providers have also prescribed her ketoconazole. I talked to her about doing her best to rinse off and she is also has a cream that she uses for her psoriasis and I recommend she follow all the instructions that she has been given before and do the best she can to keep herself clean and dry. She is not complaining of any issues test is negative and I shared this information with her and shared that it was a good thing and discussed that many women of her age start missing periods more and more Orders: Orders CT NG by PCR Today Z01.419 - Encounter for gynecological examination (general) (routine) without abnormal findings AMB HCG Urine Test Today Z32.02 - Encounter for test, result negative Bacterial Vaginosis Panel Today Z01.419 - Encounter for gynecological examination (general) (routine) without abnormal findings Medications: New miconazole nitrate 2% 1 appl topical BID 85 grams 3RF Coding Level of Care Code Est Pt Prev Care 40-64y(55247) Diagnoses Cervical cancer screening Z12.4 Encounter for screening mammogram for malignant neoplasm of breast Z12.31 Menstrual changes N92.6 Women's annual routine gynecological examination Z01.419 Breast cancer screening Z12.39 Potential exposure to STD Z20.2 Intellectual disability F79 Seborrheic dermatitis L21.9 Intertriginous dermatitis associated with moisture L30.4
[2024-11-03 13:15] VITALS: BP 110/70; BMI 35.4
== END 2024-11-03 14:16 | disposition home or self-care (01) ==
LOC: HO.HWSM 13:13
PROVIDERS: PCP Internal Medicine; Visit Provider Advanced Practice Midwife
DX: Z01.419 Encounter for gynecological examination (general) (routine) without abnormal findings (principal); N92.6 Irregular menstruation, unspecified; Z32.02 Encounter for pregnancy test, result negative
CPT/HCPCS: 99396; 99459

== ENCOUNTER 2025-04-15 15:42 | Outpatient (AMB) | payer OTHER, SELFPAY ==
--- NOTE | 2025-04-15 15:45 | MHC.OFFVIS ---
Vital Signs 04/15/25 15:47 Height 5 ft 4 in Weight 196 lb 3.382 oz BMI 33.7 BP 120/82 Blood Pressure Location Lt brachial Position Sitting Pulse 80 Intake Visit Reasons: r/s 04/13/25 Intake Note: Kristin presents in the office as a new patient appt. CC: She is not sure as to why she is here today . She states that she is NOT interested in getting a colonoscopy. Qual Research Manager Required: No Allergies No Known Allergies (No Known Allergies*) Allergy (Verified 11/03/24 13:23) HPI HPI r/s 04/13/25: Details: 50-year-old female here for preprocedural meeting to discuss a screening colonoscopy. She is referred by Bria Martinez. PMX Obesity Seizure disorder Intellectual disability High cholesterol Vertigo Anxiety disorder Seborrheic dermatitis * SURGICAL HISTORY section Tooth extraction * ALLERGIES: NKDA * [employer] LABS: None since 07/2024 TODAY'S VISIT As soon as I sit down the patient says I don't want to get put to sleep for the colonoscopy, I don't want it!!! She then begins crying. I ask the person with her to call her facility to find out who her health care proxy is, since the patient herself clearly can not give consent for the procedure. The person who is with her is not the health care proxy. Under the circumstances I can not order colonoscopy. I recommend she return to her primary care provider who can consider administering the Cologuard test if the facility feels that they can carry this out. She should not be return to our services unless we have a healthcare proxy who is willing to override the patient's objections and they have a plan to have someone with the patient to overcome her fear and anxiety given her limited mental capacity. [facility] Medical History (Updated 04/15/25 @ 15:48 by DEB Arellano) Encounter for general adult medical examination with abnormal findings Potential exposure to STD Women's annual routine gynecological examination Breast cancer screening Encounter for screening mammogram for malignant neoplasm of breast Cervical cancer screening Colon cancer screening Obesity due to excess calories Obese abdomen Anxiety, generalized Seizure disorder Intellectual disability Lipid disorder Surgical History History of tooth extraction History of section Family History Father Seizure Unknown family medical history Mother No problems noted. Sister No problems noted. Daughter No problems noted. Other Mental health disorder Social History Housing: Apartment Patient Tobacco Use Status: Never used Tobacco e-Cigarette/Vaping Use: Never Used Second Hand Smoke Exposure: No Current occupational status: disabled Cognitive needs: No Hearing needs: No Vision needs: Yes Review of Systems GI Details: Physical Exam Vital Signs: Last Vital Signs Pulse 80 04/15/25 15:47 BP 120/82 04/15/25 15:47 BMI result Body Mass Index 33.7 Const General: cooperative, no acute distress, well developed and well groomed Nutritional Appearance: well nourished and obese Limitations: behavioral limitations, No language barrier and other limitations HEENT Head: Yes normocephalic and Yes atraumatic Eyes General: appearance normal, both eyes and all related structures Resp Effort & Inspection: normal respiratory effort and able to speak in complete sentences GI Inspection: Yes Abdominal panniculus present and Yes obesity Skin General skin exam: no rashes or lesions noted Psych Appearance: grossly normal and well kempt Mental Status: other Speech and movement: Slowed speech present (Psych) Affect: Labile affect present and Anxious affect present Attitude: Other attitude/behavior findings present (Psych) Thought process: Other thought process findings present Thought content: other Insight: Poor insight present (Psych) Judgement: Poor judgement present (Psych) Assessment & Plan Assessment & Plan (1) Pre-op examination: Code(s): Z01.818 - Encounter for other preprocedural examination Category: Medical (2) Intellectual disability: Code(s): F79 - Unspecified intellectual disabilities Category: Medical (3) Seizure disorder: Code(s): G40.909 - Epilepsy, unspecified, not intractable, without status epilepticus Category: Medical (4) Obesity (BMI 35.0-39.9 without comorbidity): Code(s): E66.9 - Obesity, unspecified Category: Medical Plan As soon as I sit down the patient says I don't want to get put to sleep for the colonoscopy, I don't want it!!! She then begins crying. I ask the person with her to call her facility to find out who her health care proxy is, since the patient herself clearly can not give consent for the procedure. The person who is with her is not the health care proxy. Under the circumstances I can not order colonoscopy. I recommend she return to her primary care provider who can consider administering the Cologuard test if the facility feels that they can carry this out. She should not be return to our services unless we have a healthcare proxy who is willing to override the patient's objections and they have a plan to have someone with the patient to overcome her fear and anxiety given her limited mental capacity. Orders: Orders Complete Blood Count Auto Diff Today E66.9 - Obesity, unspecified, F79 - Unspecified intellectual disabilities, G40.909 - Epilepsy, unspecified, not intractable, without status epilepticus, Z01.818 - Encounter for other preprocedural examination Colonoscopy - GI Use Only Today E66.9 - Obesity, unspecified, F79 - Unspecified intellectual disabilities, G40.909 - Epilepsy, unspecified, not intractable, without status epilepticus, Z01.818 - Encounter for other preprocedural examination Comprehensive Met. Panel Today E66.9 - Obesity, unspecified, F79 - Unspecified intellectual disabilities, G40.909 - Epilepsy, unspecified, not intractable, without status epilepticus, Z01.818 - Encounter for other preprocedural examination Medications: New sodium,potassium,mag sulfates 17.5-3.13-1.6 gram (Suprep Bowel Prep Kit) 480 mL orally; FOR COLONOSCOPY PREP 354 mL 0RF Coding Level of Care Code New Pt Level 3 (08194) Diagnoses Pre-op examination Z01.818 Intellectual disability F79 Seizure disorder G40.909 Obesity (BMI 35.0-39.9 without comorbidity) E66.9
[2025-04-15 15:47] VITALS: BP 120/82; PULSE 80; BMI 33.7
== END 2025-04-15 16:09 | disposition home or self-care (01) ==
LOC: HO.HGI 15:43
PROVIDERS: PCP Internal Medicine; Visit Provider Nurse Practitioner
DX: Z01.818 Encounter for other preprocedural examination (principal); Z12.11 Encounter for screening for malignant neoplasm of colon; G40.909 Epilepsy, unspecified, not intractable, without status epilepticus; F79 Unspecified intellectual disabilities; E66.9 Obesity, unspecified
CPT/HCPCS: 99203

== ENCOUNTER → 2025-04-15 15:42 | Outpatient (BNVA) | payer OTHER, SELFPAY | PROVIDERS: PCP Internal Medicine; Visit Provider Nurse Practitioner | DX: Z01.818 Encounter for other preprocedural examination (principal); F79 Unspecified intellectual disabilities; G40.909 Epilepsy, unspecified, not intractable, without status epilepticus; E66.9 Obesity, unspecified | CPT/HCPCS: 99202 ==

== ENCOUNTER 2025-06-29 14:00 | Outpatient (REF) | payer OTHER, SELFPAY | END 2025-06-29 14:01 | disposition home or self-care (01) | LOC: HO.MAMMO 14:00 | PROVIDERS: PCP Internal Medicine; Visit Provider Internal Medicine | DX: Z12.31 Encounter for screening mammogram for malignant neoplasm of breast (principal) | CPT/HCPCS: 77063; 77067 ==

== ENCOUNTER → 2025-06-29 14:15 | Outpatient (BNV) | payer OTHER, SELFPAY | PROVIDERS: PCP Internal Medicine; Visit Provider Internal Medicine | DX: Z12.31 Encounter for screening mammogram for malignant neoplasm of breast (principal) | CPT/HCPCS: 77063; 77067 ==

== ENCOUNTER 2025-07-20 15:29 | Outpatient (AMB) | payer OTHER, SELFPAY ==
[2025-07-20 15:33] VITALS: BP 122/84; PULSE 80; O2SAT 97; BMI 34.8
--- NOTE | 2025-07-20 15:33 | A.OFFPC_ITS ---
Vital Signs 07/20/25 15:33 Height 5 ft 4 in Weight 203 lb BMI 34.8 BP 122/84 Blood Pressure Location Lt brachial Position Sitting Pulse 80 Pulse Source Pulse Oximeter Pulse Oximetry (%) 97 Oxygen Delivery Method Room Air Intake Visit Reasons: annual pe Allergies No Known Allergies (No Known Allergies*) Allergy (Verified 07/20/25 15:33) Medication List - Last Reconciled 07/20/25 by Bria Martinez MD calcipotriene 0.005% topical ketoconazole 2% topical lamotrigine 100 mg PO BID loratadine (Claritin) 10 mg PO DAILY PRN miconazole nitrate 2% 1 appl topical BID risperidone 2 mg PO DAILY sertraline 50 mg PO DAILY simvastatin 20 mg PO BEDTIME trazodone 50 mg PO DAILY triamcinolone acetonide 0.5% 1 appl topical BID PRN 30 days Tobacco use date assessed: 07/20/25 Dental Screening Dental Screen Date: 07/20/25 Did you have a dental visit in the last 12 months?: Yes Did you have a dental problem in the last 6 months where you did not have access to dental care?: No Was dental information given to patient?: Patient has dentist HPI annual pe HPI Details History of Present Illness The patient is a 50 year old female presenting with a wellness visit for physical examination. Hyperlipidemia: - The patient is currently being managed with simvastatin 20 mg for lipid control. Elevated Body Mass Index (BMI): - The patient has a reported BMI of 34.8 , indicating difficulty in weight reduction. Intellectual Disabilities: - Intellectual disabilities noted which impact patient's ability to comprehend medical instructions. - Anxiety and fear associated with medic al procedures like colonoscopy. Health Maintenance - Last laboratory testing occurred in [facility] of last year; a new order for blood tests has been placed. - Gastroenterology consultation in March for colonoscopy screening; consideration of alternative screening methods like Cologuard test due to patient's inability understand what colonoscopy is And she did not come in with her healthcare proxy. Patient is not able to understand the Cologuard test either and once again she is not here with her healthcare proxy. Patient Instructions - Schedule and complete blood tests as s oon as possible. - spoke to the malted milk mixer who is here wit h the patient but is not a healthcare proxy notified her about the blood test Return in six-month for follow-up appointment on lipid disorder and 1 year physical examination Review of Systems Patient has no complaint Physical Exam General: Cooperative, healthy appearing, comfortable, no acute distress Orientation: Patient is alert and is oriented to place and person Head: Normal to inspection Ears: Within normal limit visually Nose: Normal external nose present Face and sinus: Normal facial exam Eyes: Appearance normal, extraocular movement intact pupils reactive Neck: Normal visual inspection and supple Respiratory: Normal respiratory effort and able to speak in complete sentences. Clear to auscultation, no stridor Cardiovascular: S1 and S2 RRR GI: Normal to inspection. Soft to palpation and nontender Skin: Turgor normal, no acute findings Neuro: Patient oriented x3, motor sensory intact, balance intact Extremities: Normal to inspection, range of motion intact Psych: Follows instructions and answer appropriately . [facility] Medical History Encounter for general adult medical examination with abnormal findings Potential exposure to STD Women's annual routine gynecological examination Breast cancer screening Encounter for screening mammogram for malignant neoplasm of breast Cervical cancer screening Colon cancer screening Obesity due to excess calories Obese abdomen Anxiety, generalized Seizure disorder Intellectual disability Lipid disorder Surgical History History of tooth extraction History of section Family History Father Seizure Unknown family medical history Mother No problems noted. Sister No problems noted. Daughter No problems noted. Other Mental health disorder Social History Housing: Apartment Patient Tobacco Use Status: Never used Tobacco e-Cigarette/Vaping Use: Never Used Second Hand Smoke Exposure: No Current occupational status: disabled Cognitive needs: No Hearing needs: No Vision needs: Yes Questionnaire PHQ-9 Over the last 2 weeks, how often have you been bothered by any of the following problems? 1. Little interest or pleasure in doing things: not at all 2. Feeling down, depressed, or hopeless: not at all 3. Trouble falling or staying asleep, or sleeping too much: not at all 4. Feeling tired or having little energy: not at all 5. Poor appetite or overeating: not at all 6. Feeling bad about yourself - or that you are a failure or have let yourself or your family down: not at all 7. Trouble concentrating on things, such as reading the newspaper or watching television: not at all 8. Moving or speaking so slowly that other people could have noticed. Or the opposite - being so fidgety or restless that you have been moving around a lot more than usual: not at all 9. Thoughts that you would be better off or of hurting yourself in some way: not at all Total score: 0 Depression Screening Interpretation: Negative Depression Screening Done: Yes 89066 - PHQ-9 Billing: Yes Source: Developed by Drs. Venancio Wilkes, Jeannette Braga, Babak Shafer and colleagues, with an educational karl from [employer]. Thrive Questionnaire Date Thrive assessed: 07/20/25 I am a: Patient What is your living situation today?: I have a steady place to live Within the past 12 months, did the food you bought not last and you didn't have the money to get more?: Never true Within the past 12 months, did you worry whether your food would run out before you got money to buy more?: Never true Do you have trouble paying for medicines?: No Do you have trouble getting transportation to medical appointments?: No Do you have trouble paying your heating and electricity bill?: No Do you have trouble taking care of your child, family member or friend?: No Do you have trouble with day-to-day activities such as bathing, preparing meals, shopping, managing finances, etc.?: No Are you currently unemployed and looking for a job?: No Are you interested in more education?: No Please select the resources that you would like help with: None THRIVE Score: 0 AUDIT C Alcohol Use Questionnaire (AUDIT-C) 1. How often do you have a drink containing alcohol?: Never 3. How often do you have six or more drinks on one occasion?: Never Total Score: 0 Score Reviewed/Action Taken: Yes MATT-7 AMB Questionnaire MATT-7 Date MATT - 7 assessed: 07/20/25 Feeling nervous, anxious, or on edge: 0 = Not at all Not being able to stop or control worryin = Not at all Worrying too much about different things: 0 = Not at all Trouble relaxin = Not at all Being so restless that it is hard to sit still: 0 = Not at all Becoming easily annoyed or irritable: 0 = Not at all Feeling afraid as if something awful might happen: 0 = Not at all Total MATT-7 score (0-4 normal; 5-9 mild; 10-14 moderate; 15-21 severe): 0 Source: Developed by Drs. Venancio Wilkes, Jeannette Braga, Babak Shafer and colleagues, with an educational karl from [employer]. MATT-7 Assessment Billing MATT-7 Assessment Tool: MATT-7 Assessment 71553 Physical exam (Primary Care) Vital Signs: Last Vital Signs Pulse 80 07/20/25 15:33 BP 122/84 07/20/25 15:33 Pulse Ox 97 07/20/25 15:33 Oxygen Delivery Method Room Air 07/20/25 15:33 BMI result Body Mass Index 34.8 Tobacco/Smoking Status: Tobacco use Status Tobacco use date assessed 07/20/25 07/20/25 15:36 Patient Tobacco Use Status Never used Tobacco 07/20/25 15:36 e-Cigarette/Vaping Use Never Used 07/20/25 15:36 PHQ-9: PHQ-9 Score PHQ-9: Total score 0 07/20/25 15:36 Depression Screening Interpretation: Negative Thrive Assessment: Date of Thrive Assessment Date Thrive assessed 07/20/25 07/20/25 15:36 Coding Level of Care Code Est Pt Level 3 (94356) Est Pt Prev Care 40-64y(10810) Diagnoses Encounter for general adult medical examination with abnormal findings Z00. Lipid disorder E78.9 Intellectual disability F79 Obesity (BMI 35.0-39.9 without comorbidity) E66.9 Additional Codes MATT-7 Assessment Billing - MATT-7 Assessment Tool: MATT-7 Assessment 33877 ([id number]) PHQ-9 - 04943 - PHQ-9 Billing: Yes ([id number]) Assessment & Plan Assessment & Plan (1) Encounter for general adult medical examination with abnormal findings: Code(s): Z00.01 - Encounter for general adult medical examination with abnormal findings Category: Medical (2) Lipid disorder: Code(s): E78.9 - Disorder of lipoprotein metabolism, unspecified Category: Medical (3) Intellectual disability: Code(s): F79 - Unspecified intellectual disabilities Category: Medical (4) Obesity (BMI 35.0-39.9 without comorbidity): Code(s): E66.9 - Obesity, unspecified Category: Medical Plan History of Present Illness The patient is a 50 year old female presenting with a wellness visit for physical examination. Hyperlipidemia: - The patient is currently being managed with simvastatin 20 mg for lipid control. Elevated Body Mass Index (BMI): - The patient has a reported BMI of 34.8, indicating difficulty in weight reduction. Intellectual Disabilities: - Intellectual disabilities noted which impact patient's ability to comprehend medical instructions. - Anxiety and fear associated with medical procedures like colonoscopy. Health Maintenance - Last laboratory testing occurred in July of last year; a new order for blood tests has been placed. - Gastroenterology consultation in March for colonoscopy screening; consideration of alternative screening methods like Cologuard test due to patient's inability understand what colonoscopy is And she did not come in with her healthcare proxy. Patient is not able to understand the Cologuard test either and once again she is not here with her healthcare proxy. Patient Instructions - Schedule and complete blood tests as soon as possible. - spoke to the malted milk mixer who is here with the patient but is not a healthcare proxy notified her about the blood test Return in six-month for follow-up appointment on lipid disorder and 1 year physical examination . Orders: Orders Complete Blood Count Auto Diff Today E66.9 - Obesity, unspecified, E78.9 - Disorder of lipoprotein metabolism, unspecified, F79 - Unspecified intellectual disabilities, Z00.01 - Encounter for general adult medical examination with abnormal findings Comprehensive Met. Panel Today E66.9 - Obesity, unspecified, E78.9 - Disorder of lipoprotein metabolism, unspecified, F79 - Unspecified intellectual disabilities, Z00.01 - Encounter for general adult medical examination with abnormal findings LDL Cholesterol Direct Today E66.9 - Obesity, unspecified, E78.9 - Disorder of lipoprotein metabolism, unspecified, F79 - Unspecified intellectual disabilities, Z00.01 - Encounter for general adult medical examination with abnormal findings TSH reflex Free T4 Today E66.9 - Obesity, unspecified, E78.9 - Disorder of lipoprotein metabolism, unspecified, F79 - Unspecified intellectual disabilities, Z00.01 - Encounter for general adult medical examination with abnormal findings Medications: Refilled simvastatin 20 mg PO BEDTIME 1 tab 0RF
== END 2025-07-20 15:59 | disposition home or self-care (01) ==
LOC: HO.HMCC 15:29
PROVIDERS: PCP Internal Medicine; Visit Provider Internal Medicine
DX: Z00.01 Encounter for general adult medical examination with abnormal findings (principal); E78.9 Disorder of lipoprotein metabolism, unspecified; E66.9 Obesity, unspecified; Z68.34 Body mass index [BMI] 34.0-34.9, adult; F79 Unspecified intellectual disabilities

== ENCOUNTER → 2025-07-20 15:29 | Outpatient (BNVA) | payer OTHER, SELFPAY | PROVIDERS: PCP Internal Medicine; Visit Provider Internal Medicine | DX: Z00.01 Encounter for general adult medical examination with abnormal findings (principal); E78.00 Pure hypercholesterolemia, unspecified; F79 Unspecified intellectual disabilities; E66.9 Obesity, unspecified; Z68.34 Body mass index [BMI] 34.0-34.9, adult | CPT/HCPCS: 96127; 99396 ==

== ENCOUNTER 2025-07-23 14:12 | Outpatient (REF) | payer OTHER, SELFPAY ==
[2025-07-23 15:30] LABS: MANUAL DIFF FLAG NO
[2025-07-23 15:44] LABS: Hematocrit 42.1 % (37.0-47.0); Hemoglobin 14.2 g/dl (12.0-16.0); Imm Gran Abs Auto 0.02 X10*3/uL (0.00-0.03); Imm Gran Pct Auto 0.3 % (0.0-0.4); Lymphocytes Absolute Auto 1.7 X10*3/uL (1.2-4.9); Mean Corpuscular HGB Conc 33.7 g/dl (31.0-35.0); Mean Corpuscular Hemoglobin 31.8 pg (27.0-33.0); Mean Corpuscular Volume 94.2 fL (80.0-98.0); NRBC Abs Auto 0.000 X10*3/uL (0.0-0.012); NRBC Pct Auto 0.0 /100WBC (0.0-0.2); Platelet Count 190 X10*3/uL (160-400); Red Blood Count 4.47 X10*6/uL (4.20-5.50); White Blood Count 5.9 X10*3/uL (4.8-10.8)
[2025-07-23 16:09] LABS: Alanine Aminotransferase 15 U/L (0-31); Albumin Level 4.4 g/dL (3.5-5.0); Alkaline Phosphatase 79 U/L (39-117); Anion Gap 12 (12-20); Aspartate Amino Transferase 21 U/L (5-31); Blood Urea Nitrogen 12 mg/dL (9-16); Calcium 9.3 mg/dL (8.4-10.2); Carbon Dioxide 29 mmol/L (22-29); Chloride 105 mmol/L (96-108); Estimated Glomerular Filt Rate > 60; Potassium 3.7 mmol/L (3.3-5.1); Sodium 142 mmol/L (135-145); Total Protein 7.4 g/dL (6.5-8.0)
== END 2025-07-23 14:13 | disposition home or self-care (01) ==
LOC: HO.HMGCLDS 14:12
PROVIDERS: Internal Medicine; Absent Provider Nurse Practitioner; PCP Internal Medicine; Visit Provider Internal Medicine
DX: Z00.01 Encounter for general adult medical examination with abnormal findings (principal); F79 Unspecified intellectual disabilities
CPT/HCPCS: 36415; 80053; 83721; 84443; 85025